=== PATIENT | female | born 1960 | race Caucasian/White ===

== ENCOUNTER 2023-06-09 07:14 | Emergency (ER) | payer MEDICARE ==
[2023-06-09] MEDS ORDERED: Ondansetron PF 4 MG/2 ML Vial ONE (07:59)
[2023-06-09] MEDS ORDERED: Pantoprazole 40 MG VIAL ONE (08:00)
[2023-06-09] MEDS ORDERED: Sodium Chloride 0.9% 1,000 ML ONE ×2 (08:00→09:31)
[2023-06-09 08:46] LABS: Band 21 % (5-11); Hematocrit 33.9 % (36.0-47.0); Hemoglobin 11.1 g/dL (12.0-16.0); Hypochromia SLIGHT = 6-15 cells (100X) (0-5/hpf); Lymphocytes 14 % (21-51); MDiff Complete? YES; Mean Corpuscular HGB CONC 32.9 g/dL (32.0-36.0); Mean Corpuscular Hemoglobin 30.6 pg (27.0-31.0); Mean Corpuscular Volume 93.1 fl (78.0-98.0); Mean Platelet Volume 6.3 fL (7.4-10.4); Monocytes 6 % (0-10); Neutrophil 59 % (42-75); Platelet Adequacy Comment Appears Increased; Platelet Count 518 10x3/uL (130-400); RBC Distribution Width 13.7 % (11.5-14.5); Red Blood Cell (RBC) Count 3.64 mill/uL (4.20-5.40); White Blood Cell (WBC) Count 12.5 10x3/uL (4.8-10.8)
[2023-06-09] MEDS ORDERED: Iopamidol 370 76% 100 ML VIAL ONE (09:00)
[2023-06-09 09:01] LABS: ALT (SGPT) 13 U/L (8-55); AST (SGOT) 17 U/L (5-34); Albumin 3.7 g/dL (3.4-4.8); Alkaline Phosphatase 77 U/L (40-110); Anion Gap 14 mmol/L (10-20); BUN (Urea Nitrogen) 6 mg/dL (9.8-20.1); Bilirubin, Total 0.2 mg/dL (0.2-1.2); Calc. Creatinine Clearance 0 mL/min (70-130); Calcium 8.5 mg/dL (7.8-10.44); Carbon Dioxide 21 mmol/L (23-31); Chloride 95 mmol/L (98-107); Estimated GFR 98; Globulin 2.7 g/dL (2.4-3.5); Glucose 75 mg/dL (80-115); Lipase 25 U/L (8-78); Protein, Total 6.4 g/dL (5.8-8.1); Sodium 126 mmol/L (136-145)
[2023-06-09] MEDS ORDERED: Dicyclomine 10 MG CAP ONE (09:31)
[2023-06-09 10:44] LABS: Bilirubin Negative (Negative); Blood, Urine Negative (Negative); Glucose, Urine (Dipstick) Negative (Negative); Ketone, Urine Negative (Negative); Leukocyte Negative (Negative); Nitrite Negative (Negative); Protein, Urine (Dipstick) Negative (Neg-Trace); Urobilinogen 0.2 mg/dL (Less than 2); pH, Urine 6.5 (5.0-9.0)
[2023-06-09 10:55] LABS: Clarity Hazy (Clear)
[2023-06-09 10:56] LABS: Bacteria/HPF 1+ HPF (None Seen); CAUTI Indications for Culture Dysuria,urgency,freq; RBC/HPF 0-3 HPF (0-3); Specific Gravity, Urine 1.025 (1.002-1.036); WBC/HPF 0-3 HPF (0-3)
[2023-06-09 10:57] LABS: Urine Culture Reflex No No
[2023-06-10 22:08] LABS: Campy jejuni + coli by PCR Negative (Negative); STEC Shiga Toxin 1+2 Negative (Negative); Salmonella spp. by PCR Negative (Negative); Shigella spp + EIEC by PCR Negative (Negative)
== END 2023-06-09 12:07 | disposition home or self-care (01) ==
LOC: MADERS 07:14
DX: K52.9 Noninfective gastroenteritis and colitis, unspecified (principal); R22.2 Localized swelling, mass and lump, trunk; I10 Essential (primary) hypertension; J44.9 Chronic obstructive pulmonary disease, unspecified; Z79.899 Other long term (current) drug therapy
CPT/HCPCS: 74177; 80053; 81001; 83690; 85025; 87505; 96361; 96374; 96375; C9113; J2405; J7050; Q9967